=== PATIENT | female | born 2005 | race Caucasian/White ===

== ENCOUNTER 2023-10-11 00:02 | Emergency (ER) | payer OTHER, SELFPAY ==
[2023-10-11 00:04] VITALS: BP 130/80; PULSE 100; RESP 18; TEMP 36.8; O2SAT 99; BMI 40.6
[2023-10-11 00:27] LABS: Basophils % 0.6 % (0.1-2.0); Eosinophils # 0.1 K/mm3 (0.0-0.4); Eosinophils % 1.7 % (0.1-12.0); Hematocrit 41.1 % (37.0-47.0); Hemoglobin 13.1 g/dL (12.2-16.2); Lymphocytes # 2.3 K/mm3 (0.7-4.5); Lymphocytes % 30.5 % (10-50); Mean Corpuscular HGB Conc 31.9 g/dL (31.8-35.4); Mean Corpuscular Hemoglobin 30.7 pg (27.0-31.2); Mean Corpuscular Volume 96.3 fl (81-99); Mean Platelet Volume 7.9 fl (7.4-10.4); Monocytes # 0.4 K/mm3 (0.1-1.0); Monocytes % 5.6 % (1.7-9.3); Neutrophils # 4.6 K/mm3 (1.8-7.8); Neutrophils % 61.6 % (37.0-80.0); Platelet Count 257 K/mm3 (142-424); Red Blood Count 4.27 M/mm3 (4.20-5.40); White Blood Count 7.4 K/mm3 (4.5-13.0)
--- NOTE | 2023-10-11 00:34 | HMH.EDGENADL ---
Discharge Plan Disposition Patient Disposition: Home, Self-Care Condition: Good Prescriptions Prescriptions: New cephalexin 500 mg capsule 500 mg PO QID 5 Days Qty: 20 0RF cephalexin 500 mg capsule 500 mg PO QID 5 Days Qty: 20 0RF Referrals Follow up/Referrals: Provider,Referral, [Primary Care Provider] - See instructions Activity Restrictions/Add. Instructions Additional Instructions/Restrictions: Please follow-up with [facility] for reassessment. Please take antibiotics as prescribed for treatment of asymptomatic bacteriuria. Clinical Impressions Clinical Impression: , Asymptomatic bacteriuria during in first trimester Instructions Patient Instructions: DI for Acute Abdominal Pain Discharge ED Provider: Isaiah Juarez General Adult HPI General Chief complaint: Abdominal Pain Stated complaint: lower abd pressure, nausea, headache Time Seen by Provider: 10/11/23 00:05 Mode of Arrival: Ambulatory Source of Information: Patient Limitations: No Limitations Description of Symptoms (Recalled from ER Triage Doc. by RN): Pt states she took a test at home and wants to make sure she's . Pt states she's had intermittent abd tightness for approx 2 weeks. Pt has zero complaints at this time. Pt is A&O*4. History of Present Illness HPI narrative: 18-year-old female presents because she had a positive test at home and wants confirmation. She reports that she has had intermittent pangs of discomfort in her lower abdomen lasting on the scale of minutes. She also reports intermittent nausea. Denies any burning with urination. She denies severe or persistent abdominal pain, currently is symptom-free. She has never had a prior . Last menstrual period started on August 28, approximately 6 weeks ago. Denies any recent vaginal bleeding or discharge. Related Data Previous Rx's Medication Instructions Recorded cephalexin 500 mg capsule 500 mg PO QID 5 days #20 caps 10/11/23 cephalexin 500 mg capsule 500 mg PO QID 5 days #20 caps 10/11/23 Allergies Allergy/AdvReac Type Severity Reaction Status Date / Time No Known Allergies Allergy Verified 10/11/23 00:52 [facility] Disclaimer: The information contained in this section may have been updated after the patient was seen, as this information can be updated by other users. Social History Smoking Status: Current every day smoker alcohol intake: never current occupational status: other Travel in the last 8 weeks: None ROS Obtained: Yes All systems reviewed & no additional complaints except as documented Physical Exam General General appearance: alert and in no apparent distress Head Head exam: atraumatic and normocephalic Eye Eye exam: Present normal appearance, PERRL and EOMI ENT ENT exam: Present normal oropharynx and normal external ear exam Neck Neck exam: Present normal inspection and full ROM Chest Chest inspection: Present normal inspection and symmetric chest wall rise; Absent tenderness Respiratory Respiratory exam: Present normal lung sounds bilaterally; Absent respiratory distress Cardiovascular Cardiovascular exam: Present regular rate and normal rhythm Abdominal Exam Abdominal exam: Present soft; Absent distention, tenderness or guarding Extremities Exam Extremities exam: Present normal inspection; Absent edema or joint swelling Back Exam Back exam: Present normal inspection; Absent tenderness Neurological Exam Neurological exam: Present alert and oriented X3; Absent motor sensory deficit Psychiatric Psychiatric exam: Present normal affect and normal mood Skin Skin exam: Present warm, dry and normal color Lymphatic Lymphatic Findings: no adenopathy Medical Decision Making Medical Records Medical records reviewed: Yes I reviewed the patient's medical records. Claude Inquiry Pt receiving controlled substance: No Claude was queried for this patient: No Vital Signs: 10/11/23 00:04 10/11/23 01:15 Temperature 98.3 F 98.4 F Temperature Source Oral Oral Pulse Rate 100 H Pulse Rate [Left] 100 H Respiratory Rate 18 18 Blood Pressure 124/64 Blood Pressure [Right Arm] 130/80 Blood Pressure Mean [Right Arm] 96 02 Sat by Pulse Oximetry 99 Oxygen Delivery Method Room Air Room Air Lab Data Lab results reviewed: Yes I reviewed the patient's lab results. Lab Results 10/11/23 00:15: WBC 7.4, RBC 4.27, Hgb 13.1, Hct 41.1, MCV 96.3, MCH 30.7, MCHC 31.9, RDW 13.0, Plt Count 257, MPV 7.9, Neut % (Auto) 61.6, Lymph % (Auto) 30.5, Barry % (Auto) 5.6, Eos % (Auto) 1.7, Baso % (Auto) 0.6, Neut # (Auto) 4.6, Lymph # (Auto) 2.3, Barry # (Auto) 0.4, Eos # (Auto) 0.1, Baso # (Auto) 0.0, Sodium 137, Potassium 3.8, Chloride 107, Carbon Dioxide 27, Anion Gap 6.8, BUN 5 L, Creatinine 0.60, Estimated Creat Clear 294, Estimated GFR 127, Est GFR ( Amer) 154, Glucose 89, Calcium 9.6, Total Bilirubin 1.0, AST 31, ALT 38, Alkaline Phosphatase 50, Total Protein 6.9, Albumin 3.9, Globulin 3.0, Albumin/Globulin Ratio 1.3, HCG, Quant 11916 H 10/11/23 00:43: Urine Color Yellow, Urine Appearance Cloudy, Urine pH 6.5, Ur Specific Nichols 1.020, Urine Protein Negative, Urine Glucose (UA) Negative, Urine Ketones Negative, Urine Blood Negative, Urine Nitrate Negative, Urine Bilirubin Negative, Urine Urobilinogen 1.0, Ur Leukocyte Esterase Trace, Urine WBC 5-10, Ur Squamous Epith Cells 5-10, Amorphous Sediment 1+, Urine Bacteria 2+, Urine Mucus 1+ 10/11/23 00:15 10/11/23 00:15 Orders (Tests/Meds): ORDERS Category Date Time Status Beta HCG, Quant [HCG,Quantitative] Stat Lab 10/11/23 00:15 Completed CBC w/Auto Diff [Complete Blood Count Auto Diff] Stat Lab 10/11/23 00:15 Completed CMP [Comprehensive Metabolic Panel] Stat Lab 10/11/23 00:15 Completed UA [Urinalysis and Microscopic] Stat Lab 10/11/23 00:43 Completed Urine Culture Stat Micro 10/11/23 00:43 Received Medical Decision Narrative: 18-year-old female without prior past medical history and without any current complaints reports that she had a positive home test and would like confirmation. She reports that she has had brief intermittent lower abdominal discomfort, but lasts no longer than 5 minutes, denies any urinary symptoms. History was obtained interactive discussion with patient. On arrival, patient is [afebrile, hemodynamically stable, satting appropriately, alert, oriented x4, GCS 15], moving all extremities spontaneously. Full physical exam performed and significant for no significant physical exam abnormalities. Differential includes but is not limited to intrauterine , extrauterine , UTI. Workup initiated including quantitative beta-hCG, CBC CMP UA. On re-evaluation, patient [remains afebrile, HD stable.] Laboratory workup independently interpreted by me and significant for asymptomatic bacteriuria, positive test with quant 18,000. Transabdominal ultrasound was attempted but was technically inadequate. Transvaginal ultrasound was considered but deemed unnecessary given patient is asymptomatic. Given patient history, exam and workup, patient's presentation most likely represents for asymptomatic first trimester of unknown location. These findings were communicated patient. She was discharged in stable condition with instructions to follow-up with [facility] for reassessment. Procedures Risk/Benefits of Procedure(s) Were Explained: Yes Critical Care Critical Care Time Critical Care Time: No
[2023-10-11 00:37] LABS: Chloride 107 mmol/L (98-107); Potassium 3.8 mmoL/L (3.5-5.1); Sodium 137 mmol/L (136-145)
[2023-10-11 00:39] LABS: Blood Urea Nitrogen 5 mg/dl (7-17); Creatinine Clearance Estimated 294 mL/min (50-200); Estimated Glomerular Filt Rate 127 ml/min (>60); GFR (African American) 154 ML/MIN (>60)
[2023-10-11 00:40] LABS: Alanine Aminotransferase 38 U/L (12-78); Albumin Level 3.9 g/dl (3.5-5.0); Albumin/Globulin Ratio 1.3 (1.1-1.8); Alkaline Phosphatase 50 U/L (38-126); Anion Gap 6.8 mEq/L (5-15); Aspartate Amino Transferase 31 U/L (14-36); Carbon Dioxide 27 mmol/L (22.0-30.0); Glucose 89 mg/dl (74-100); Total Protein,Serum 6.9 g/dl (6.3-8.2)
[2023-10-11 00:41] LABS: Calcium 9.6 mg/dl (8.4-10.2)
[2023-10-11 00:49] LABS: Microscopic, Urine URINE MICROSCOPIC (MICROSCOPIC)
[2023-10-11 00:50] LABS: Appearance,Urine Cloudy (Clear); Bilirubin,Urine Negative (Negative); Blood, Urine Negative (Negative); Color,Urine YELLOW (Yellow); Glucose,Urine (UA) Negative (Negative); Ketones,Urine Negative (Negative); Leukocyte Esterase,Urine TRACE (Negative); Nitrate,Urine Negative (Negative); PH,Urine 6.5 (5.0-8.5); Protein,Urine Negative (Negative)
[2023-10-11 01:04] LABS: Amorphous Sediment,Urine 1+ /lpf; Bacteria,Urine 2+ /lpf; Mucus,Urine 1+ /lpf
[2023-10-11 01:15] VITALS: BP 124/64; PULSE 100; RESP 18; TEMP 36.9; O2SAT 100
[2023-10-11 01:23] LABS: HCG,Quantitative 18110 mIU/ml (0-5.42)
== END 2023-10-11 01:32 | disposition home or self-care (01) ==
LOC: ER 01:28
PROVIDERS: Emergency Provider Emergency Medicine
DX: O23.41 Unspecified infection of urinary tract in pregnancy, first trimester (principal); B96.89 Other specified bacterial agents as the cause of diseases classified elsewhere; R10.813 Right lower quadrant abdominal tenderness; R10.814 Left lower quadrant abdominal tenderness; Z3A.01 Less than 8 weeks gestation of pregnancy
CPT/HCPCS: 80053; 81001; 84702; 85025; 87086; 99283

== ENCOUNTER 2023-11-13 15:57 | Outpatient (CLI) | payer OTHER, SELFPAY ==
[2023-11-13 17:05] LABS: Basophils % 0.4 % (0.1-2.0); Eosinophils # 0.1 K/mm3 (0.0-0.4); Eosinophils % 0.7 % (0.1-12.0); Hemoglobin 13.3 g/dL (12.2-16.2); Lymphocytes # 1.8 K/mm3 (0.7-4.5); Lymphocytes % 21.6 % (10-50); Mean Corpuscular HGB Conc 34.2 g/dL (31.8-35.4); Mean Corpuscular Hemoglobin 31.9 pg (27.0-31.2); Mean Corpuscular Volume 93.2 fl (81-99); Mean Platelet Volume 7.8 fl (7.4-10.4); Monocytes # 0.3 K/mm3 (0.1-1.0); Monocytes % 3.9 % (1.7-9.3); Neutrophils # 6.2 K/mm3 (1.8-7.8); Neutrophils % 73.4 % (37.0-80.0); Platelet Count 251 K/mm3 (142-424); Red Blood Count 4.19 M/mm3 (4.20-5.40); Red Cell Distribution Width 13.4 % (11.5-17.5); White Blood Count 8.4 K/mm3 (4.5-13.0)
[2023-11-15 11:15] LABS: HCV Ab Non Reactive (Non Reactive); HIV Screen 4th Generation wRfx Non Reactive (Non Reactive); Hepatitis B Surface Antigen Negative (Negative); Rubella Antibodies, IgG 2.27 index (Immune >0.99)
[2023-11-15 13:47] LABS: Rapid Plasma Reagin Ab Titer Non Reactive titer (NonRea<1:1)
[2023-11-16 04:33] LABS: Neisseria gonorrhoeae, NAA Negative (Negative)
== END 2023-11-13 23:59 | disposition home or self-care (01) ==
LOC: LAB 15:58
PROVIDERS: Visit Provider Obstetrics & Gynecology
DX: O21.9 Vomiting of pregnancy, unspecified (principal); Z3A.11 11 weeks gestation of pregnancy
CPT/HCPCS: 36415; 85025; 86593; 86703; 86762; 86850; 87340; 87491; 87591; G0432

== ENCOUNTER 2024-04-06 18:51 | Emergency (ER) | payer OTHER, SELFPAY ==
[2024-04-06 19:00] VITALS: BP 135/85; PULSE 107; O2SAT 98
[2024-04-06 19:02] VITALS: BP 135/85; PULSE 115; RESP 16; TEMP 36.6; O2SAT 98; BMI 42.8
--- NOTE | 2024-04-06 19:02 | PC.NURSE ---
Dr. Ann at [facility] for pt eval
--- NOTE | 2024-04-06 19:04 | XR_ITS ---
PROCEDURE INFORMATION: Exam: XR Left Ankle Exam date and time: 04/06/2024 7:02 PM Age: 19 years old Clinical indication: Injury or trauma; Fall; Blunt trauma; Ankle; Left; Additional info: Fall, inversion in jury and lateral mal pain TECHNIQUE: Imaging protocol: Radiologic exam of the left ankle. Views: 3 or more views. COMPARISON: No relevant prior studies available. FINDINGS: Bones/joints: Normal. Soft tissues: Normal. IMPRESSION: No acute findings identified.
--- NOTE | 2024-04-06 19:08 | HMH.EDGENADL ---
Discharge Plan Disposition Patient Disposition: Home, Self-Care Chief Complaint: Extremity Injury, Lower Prescriptions Prescriptions: No Action ondansetron HCl 4 mg tablet 4 mg PO Q8H Qty: 30 1RF cephalexin 500 mg capsule 500 mg PO QID 5 Days Qty: 20 0RF Referrals Follow up/Referrals: Provider,Referral, MD [Primary Care Provider] - See instructions Activity Restrictions/Add. Instructions Additional Instructions/Restrictions: Call your family doctor to establish care for this visit to the emergency department and schedule follow-up within 48 hours to ensure improvement. If you have any worsening of your condition or any other concerning signs or symptoms, return to the emergency department or your primary care doctor for further evaluation. Clinical Impressions Clinical Impression: Left ankle sprain Print Language Print Language: Mongolian Discharge ED Provider: Lukas Ann General Adult HPI General Chief complaint: Extremity Injury, Lower Stated complaint: AO 04/06/24 1830 injury left ankle Time Seen by Provider: 04/06/24 19:00 History of Present Illness HPI narrative: Please note that above description of symptoms, in this electronic medical record under categorization of recalled from ER triage doctor by RN are reflective of an initial nursing assessment, however, is not reflective of my full history and physical exam that was personally taken and clarified. Consequentially, this preceding description of symptoms, which may include the patient's categorized chief complaint in the EMR, do not reflect my personal clinical impression, and the ultimate description of history of present illness and patient stated complaints should be deferred to this section of the note. Unless stated otherwise or congruent with this section of the note, additional signs, symptoms, or incongruence should be interpreted as inaccurate with my clinical impression. Related Data Previous Rx's ?Medication ?Instructions ?Recorded cephalexin 500 mg capsule 500 mg PO QID 5 days #20 caps 10/11/23 ondansetron HCl 4 mg tablet 4 mg PO Q8H #30 tabs 11/13/23 Allergies Allergy/AdvReac Type Severity Reaction Status Date / Time No Known Allergies Allergy Verified 11/13/23 14:54 [facility] Disclaimer: The information contained in this section may have been updated after the patient was seen, as this information can be updated by other users. Surgical History (Updated 11/13/23 @ 15:04 by DEBRA Machuca) No significant past surgical history Family History (Updated 11/13/23 @ 14:56 by DEBRA Machuca) Other No significant family history Social History Smoking Status: Unknown if ever smoked alcohol intake: never current occupational status: other Travel in the last 8 weeks: None ROS Obtained: Yes All systems reviewed & no additional complaints except as documented Physical Exam General General appearance: alert Head Head exam: atraumatic and normocephalic Eye Eye exam: Present normal appearance, PERRL and EOMI Neck Neck exam: Present normal inspection, full ROM and trachea midline Respiratory Respiratory exam: Absent respiratory distress, wheezes, stridor, accessory muscle use or prolonged expiratory phase Cardiovascular Cardiovascular exam: Present other (Pulses equal symmetric in upper and lower extremities) Abdominal Exam Abdominal exam: Present soft; Absent distention, tenderness or pulsatile mass Extremities Exam Extremities exam: Absent edema Neurological Exam Neurological exam: Present alert, oriented X3 and CN II-XII intact; Absent motor sensory deficit Skin Skin exam: Present warm and dry; Absent diaphoresis or erythema Medical Decision Making Medical Records Medical records reviewed: Yes I reviewed the patient's medical records. Screening: Per USPSTF and CDC recommendations, given the prevalence of disease in our region, it is our hospital?s policy to screen for HIV and viral Hepatitis for all patients aged 18 and over and those with ongoing risk factors. Claude Inquiry Pt receiving controlled substance: No Claude was queried for this patient: No Vital Signs: 04/06/24 19:00 04/06/24 19:02 04/06/24 19:20 Temperature 97.8 F Temperature Source Oral Pulse Rate 107 H 98 H Pulse Rate [Left] 115 H Respiratory Rate 16 Blood Pressure 135/85 157/88 H Blood Pressure [Right Arm] 135/85 Blood Pressure Mean [Right Arm] 101 Blood Pressure Source [Right Arm] Automatic Cuff Blood Pressure Position [Right Arm] Sitting 02 Sat by Pulse Oximetry 98 98 98 Oxygen Delivery Method Room Air 04/06/24 19:30 Temperature Temperature Source Pulse Rate 100 H Pulse Rate [Left] Respiratory Rate Blood Pressure Blood Pressure [Right Arm] Blood Pressure Mean [Right Arm] Blood Pressure Source [Right Arm] Blood Pressure Position [Right Arm] 02 Sat by Pulse Oximetry 97 Oxygen Delivery Method Orders (Tests/Meds): ED MEDICATIONS Discontinued Medications Generic Name Dose Route Start Last Admin Trade Name Freq PRN Reason Stop Dose Admin Acetaminophen 1,000 mg 04/06/24 19:04 04/06/24 19:33 Acetaminophen 500mg Tab PO 04/06/24 19:05 1,000 mg ONCE ONE Administration ORDERS Category Date Time Status Ankle XR - Left minimum 3 Views [XR ankle LT min 3V] Exams 04/06/24 19:04 Taken Stat POCUS Point of Care (ER Only) Stat Exams 04/06/24 19:04 Ordered Medical Decision Narrative: 19-year-old female 7 months presenting with fall. Patient states that she twisted her ankle just before arrival. Fell on the ground, landed on her buttocks on her back. States that as a completely separate site complaint, she wants her baby to be ultrasounded today. No vaginal gushes of fluid, blood, decreased movement, etc. She states that she feels like she is having growing pains, lets start in suprapubic region and radiate across inguinal folds bilaterally. Today, ankle pain is mild, she is able to ambulate, just wanted to make sure it was not broken. Has not taken anything for the pain. history was obtained via conversation with patient. On arrival, patient hemodynamically stable, alert, oriented x4, appropriate, GCS 15, moving all extremities spontaneously, pupils equal and reactive to light. Full physical exam performed and significant for 19-year-old female no acute distress. Abdomen soft, nontender, nondistended. Left ankle mildly tender anterior aspect of lateral malleolus, no other tenderness about the lower extremity. Neurovascular intact. Differential includes sprain, strain, among others. Patient given 1 g of acetaminophen for discomfort. X-rays obtained, on independent to rotation these demonstrated no acute bony abnormality. Bedside [id number] ultrasound performed and remarkable for good movements, grossly adequate amniotic fluid, flexion and extension movements. heart rate around 154. On reevaluation, patient resting comfortably and at baseline. Patient has no tenderness over the spot, I believe this is probably old and she does as well after further conversation. Given patient presentation, workup, history, this most likely represents ankle sprain and medical evaluation in the setting of . Because patient at baseline without signs or symptoms of clinical decompensation, deemed appropriate for discharge. Results were relayed to patient who voiced understanding and were agreeable to outpatient management and follow up. I discussed my clinical impression with patient and answered all questions. At this time, the evidence for any other entities in the differential is insufficient to warrant any further testing or ED observation. This was explained as well. Advisory was given that persistent or worsening symptoms require further evaluation. I confirmed the understanding of this discussion. Neurology Epilepsy Physician disclaimer Much of this encounter note is an electronic optical lathe operator spoken language to printed text. Electronic optical lathe operator of the spoken language may permit errors. Although I have reviewed the note, some errors may still exist. Procedures Limited Ultrasound Indication:: Limited OB ultrasound Indication: , fall, lower abdominal discomfort for 1 week Identified structures: -Uterus -Left adnexa -Right adnexa -Pouch of Peter Findings: Uterus: Definitive IUP with heart rate 154 Right adnexa: -Normal Left adnexa: -Normal Cul de sac: -free fluid absent Impression: -IUP: Present with fhr 154 -Ectopic : Absent -Free fluid: Absent Images were saved to permanent archive The study was technically adequate CPT Transabdominal: 09356-62 This study was performed by me, and I personally interpreted all images/videos. Based on my clinical judgement, these images were adequate and did not necessitate further imaging Critical Care Critical Care Time Critical Care Time: No
[2024-04-06 19:20] VITALS: BP 157/88; PULSE 98; O2SAT 98
[2024-04-06 19:30] VITALS: PULSE 100; O2SAT 97
[2024-04-06] MEDS: ACETAMINOPHEN 500MG TAB 1000 MG PO (19:33)
[2024-04-06 19:42] VITALS: BP 160/99; PULSE 98; RESP 18; TEMP 36.6; O2SAT 100
== END 2024-04-06 19:50 | disposition home or self-care (01) ==
PROVIDERS: Emergency Provider Emergency Medicine
DX: S93.402A Sprain of unspecified ligament of left ankle, initial encounter (principal); M25.572 Pain in left ankle and joints of left foot; Z33.1 Pregnant state, incidental; W01.0XXA Fall on same level from slipping, tripping and stumbling without subsequent striking against object, initial encounter; Y93.9 Activity, unspecified; Y92.9 Unspecified place or not applicable
CPT/HCPCS: 73610; 99283

== ENCOUNTER 2024-04-23 05:14 | Emergency (ER) | payer OTHER, SELFPAY ==
[2024-04-23 05:15] VITALS: BP 116/89; PULSE 120; RESP 22; TEMP 36.8; O2SAT 97; BMI 42.8
[2024-04-23 07:03] VITALS: BP 116/89; PULSE 120; RESP 22; TEMP 36.8; O2SAT 97
--- NOTE | 2024-04-23 07:07 | HMH.EDGENADL ---
Discharge Plan Disposition Patient Disposition: Home, Self-Care Prescriptions Prescriptions: No Action ondansetron HCl 4 mg tablet 4 mg PO Q8H Qty: 30 1RF cephalexin 500 mg capsule 500 mg PO QID 5 Days Qty: 20 0RF Referrals Follow up/Referrals: Provider,Referral, [Primary Care Provider] - See instructions Clinical Impressions Clinical Impression: Encounter for medical assessment Instructions Patient Instructions: DI for Skin Abscess Print Language Print Language: Polish Discharge ED Provider: Isaiah Juarez General Adult HPI General Chief complaint: Skin/Abscess/Foreign Body Stated complaint: Swollen L Index Finger Time Seen by Provider: 04/23/24 07:01 Mode of Arrival: Ambulatory Source of Information: Patient Limitations: No Limitations Description of Symptoms (Recalled from ER Triage Doc. by RN): pt reports they were having intercourse 10 mins ago when she went to the bathroom and noticed her left index finger was swollen. pt denies any injury or pain. pt reports she is also 8 months pregant History of Present Illness HPI narrative: 19-year-old female, 8 weeks , no other significant past medical history presents with concern for intermittent swelling of her left index finger. She reports that she was having sex and went to the bathroom afterwards and noticed that her finger was swollen. She immediately came to the ER. The finger is now normal in size. She reports no trauma, was not doing anything abnormal with the finger, denies pain. Reports that her is going well. Related Data Previous Rx's ?Medication ?Instructions ?Recorded cephalexin 500 mg capsule 500 mg PO QID 5 days #20 caps 10/11/23 ondansetron HCl 4 mg tablet 4 mg PO Q8H #30 tabs 11/13/23 Allergies Allergy/AdvReac Type Severity Reaction Status Date / Time No Known Allergies Allergy Verified 11/13/23 14:54 [facility] Disclaimer: The information contained in this section may have been updated after the patient was seen, as this information can be updated by other users. Surgical History (Updated 11/13/23 @ 15:04 by DEBRA Machuca) No significant past surgical history Family History (Updated 11/13/23 @ 14:56 by DEBRA Machuca) Other No significant family history Social History Smoking Status: Unknown if ever smoked alcohol intake: never current occupational status: other Travel in the last 8 weeks: None ROS Obtained: Yes All systems reviewed & no additional complaints except as documented Physical Exam General General appearance: alert and in no apparent distress Head Head exam: atraumatic and normocephalic Eye Eye exam: Present normal appearance, PERRL and EOMI ENT ENT exam: Present normal oropharynx and normal external ear exam Neck Neck exam: Present normal inspection and full ROM Chest Chest inspection: Present normal inspection and symmetric chest wall rise; Absent tenderness Respiratory Respiratory exam: Present normal lung sounds bilaterally; Absent respiratory distress Cardiovascular Cardiovascular exam: Present regular rate and normal rhythm Abdominal Exam Abdominal exam: Present soft and distention (Gravid); Absent tenderness or guarding Extremities Exam Extremities exam: Present normal inspection; Absent edema or joint swelling Back Exam Back exam: Present normal inspection; Absent tenderness Neurological Exam Neurological exam: Present alert and oriented X3; Absent motor sensory deficit Psychiatric Psychiatric exam: Present normal affect and normal mood Skin Skin exam: Present warm, dry and normal color Lymphatic Lymphatic Findings: no adenopathy Medical Decision Making Medical Records Medical records reviewed: Yes I reviewed the patient's medical records. Screening: Per USPSTF and CDC recommendations, given the prevalence of disease in our region, it is our hospital?s policy to screen for HIV and viral Hepatitis for all patients aged 18 and over and those with ongoing risk factors. Claude Inquiry Pt receiving controlled substance: No Claude was queried for this patient: No Vital Signs: 04/23/24 05:15 04/23/24 07:03 Temperature 98.2 F 98.2 F Temperature Source Oral Pulse Rate 120 H Pulse Rate [Right] 120 H Respiratory Rate 22 22 Blood Pressure 116/89 Blood Pressure [Right Arm] 116/89 Blood Pressure Mean [Right Arm] 98 02 Sat by Pulse Oximetry 97 Oxygen Delivery Method Room Air Room Air Lab Data Lab results reviewed: Yes I reviewed the patient's lab results. Medical Decision Narrative: 19-year-old female, 8 months , presents for concern for a briefly swollen left index finger without trauma, pain or other concerns. It was brief in nature. It is normal in appearance now. Imaging was considered but demonstrate given normal exam and no history of trauma. Patient discharged in stable condition. Procedures Risk/Benefits of Procedure(s) Were Explained: Yes Critical Care Critical Care Time Critical Care Time: No
--- NOTE | 2024-04-23 07:09 | PC.NURSE ---
Due to downtown times seen by provider and discharge, time is disorted. Provider seen pt at triage time. DC at [phone]
== END 2024-04-23 07:11 | disposition home or self-care (01) ==
PROVIDERS: Emergency Provider Emergency Medicine
DX: Z34.90 Encounter for supervision of normal pregnancy, unspecified, unspecified trimester (principal); R22.32 Localized swelling, mass and lump, left upper limb
CPT/HCPCS: 99281